=== PATIENT | male | born 1960 | race Caucasian/White ===

== ENCOUNTER 2018-10-24 14:30 | Outpatient (CLI) | payer BC, SELFPAY ==
[2018-10-24 15:28] LABS: D-Dimer 311 ng/mlFEU (<500)
== END 2018-10-24 14:50 ==
PROVIDERS: PCP Family Medicine; Visit Provider Family Medicine
DX: R07.9 Chest pain, unspecified (principal)
CPT/HCPCS: 36415; 85379

== ENCOUNTER 2018-10-25 08:13 | Outpatient (CLI) | payer BC, SELFPAY ==
--- NOTE | 2018-10-25 09:30 | DI.RAD_ITS ---
SYMPTOM/DIAGNOSIS: LEFT ANT CHEST DISCOMFORT R07.89 CHEST X-RAY: PA , LATERAL. Comparison is 04/03/09 The heart is normal in size. The lungs are clear. The mediastinal structures and pleura appear intact. CONCLUSION: Normal chest.
== END 2018-10-25 08:33 ==
PROVIDERS: PCP Family Medicine; Visit Provider Family Medicine
DX: R07.89 Other chest pain (principal)
CPT/HCPCS: 71046

== ENCOUNTER 2018-11-12 00:32 | Outpatient (CLI) | payer BC, SELFPAY ==
--- NOTE | 2018-11-12 07:06 | ETT_ITS ---
*[facility]* *[facility]* [address] [place] [address] Stress Electrocardiography Noah protocol Date of study: 11/12/2018 *PATIENT PRESENTATION* Height: 180.3cm (71in) Blood Pressure: Weight: 81.4kg (179lb) BSA: 2.03m^2 Ordering physician: Alberto Muro Impressions: Normal study after maximal exercise. Summary: 1. Stress ECG conclusions: The stress ECG is negative. Biggs treadmill score: 10. This score predicts a low risk of cardiac events. 2. Stress: The target heart rate was achieved. The heart rate response to stress is normal. There is a normal resting blood pressure with an appropriate response to stress. The patient experienced no chest pain during stress. Exercise capacity is average for age. 3. Treadmill exercise testing was performed using the Noah protocol. The patient exercised for 9 min 47 sec, to protocol stage 4, to a maximal work rate of 11.5mets. Exercise was terminated due to achievement of target heart rate. Indication: [id number], Appropriate Use Criteria: A (Appropriate). History: REASON FOR TESTING: PATIENT TESTING FOR FURTHER RISK STRATIFICATION. FOR THE PAST MONTH HE REPORTS FAIRLY CONSTANT LEFT SIDED CHEST TIGHTNESS WITH OCCASIONAL LEFT ARM NUMBNESS. PATIENT DENIES CHEST PAIN AND LEFT ARM NUMBNESS UPON ARRIVAL TO TESTING TODAY. SIGNIFICANT PAST MEDICAL HISTORY: GERD. SMOKING STATUS: NEVER. EXERCISE ROUTINE: ACTIVE WITH JOB AND HOME ACTIVITIES. Risk factors: Family history of coronary artery disease. Hypertension. Dyslipidemia. Cholesterol: 238mg/dl. HDL: 38mg/dl. LDL: 128mg/dl. Triglycerides: 220mg/dl. ALLERGIES: PENICILLIN. MEDICATIONS: ASPIRIN 81 MG DAILY, OMEGA 3 FISH OIL DAILY, ATENOLOL 25 MG DAILY, INDOMETHACIN 50 MG TID PRN, LISINOPRIL 10 MG DAILY, TADALAFIL 10 - 20 MG DAILY. Protocol: Noah protocol. Baseline ECG: SINUS RHYTHM. HR 69 BPM. Normal ECG. Stress protocol: + +---+ + !Stage !HR !BP (mmHg) ! + +---+ + !Baseline supine !69 !178/92 (121)! + +---+ + !Baseline standing !74 !156/92 (113)! + +---+ + !Stage I; 1.7mph, 10degrees; 3 min !102!164/90 (115)! + +---+ + !Stage II; 2.5mph, 12degrees; 3 min !124!168/92 (117)! + +---+ + !Stage III; 3.4mph, 14degrees; 3 min!160!188/94 (125)! + +---+ + !Peak stress !176! ! + +---+ + !Recovery; 1 min !158!196/78 (117)! + +---+ + !Recovery; 3 min !109!192/86 (121)! + +---+ + !Recovery; 6 min !99 !180/88 (119)! + +---+ + !Recovery; 9 min !102!180/94 (123)! + +---+ + !Recovery; 12 min !94 !172/94 (120)! + +---+ + * Stress results: STRESS TEST ENDED IN 9 MINUTES 47 SECONDS DUE TO HAVING MET 100% OF TARGET HEART RATE. HYPERTENSIVE AT BASELINE. NORMAL HEART RATE AND BLOOD PRESSURE RESPONSE TO EXERCISE MAX HEART RATE: 176. 108 % OF TARGET HEART RATE ACHIEVED. MET'S: 11.45. NO ECTOPY. NO ANGINA. NO SIGNIFICANT ST SEGMENT CHANGES. AVERAGE FUNCTIONAL CAPACITY. Maximal heart rate during stress was 176bpm (109% of maximal predicted heart rate). The maximal predicted heart rate was 162bpm. The target heart rate was achieved. The heart rate response to stress is normal. There is a normal resting blood pressure with an appropriate response to stress. The rate-pressure product for the peak heart rate and blood pressure was 88272jj Hg/min. The patient experienced no chest pain during stress. Exercise capacity is average for age. Stress ECG: The stress ECG is negative. Biggs treadmill score: 10. This score predicts a low risk of cardiac events. Study data: Kevin Colón MD supervised and was readily available during the procedure. This study was interpreted by [facility]. Study status: Routine. Consent: The risks, benefits, and alternatives to the procedure were explained to the patient and informed consent was obtained. Procedure: Initial setup. A baseline ECG was recorded. Surface ECG leads and manual cuff blood pressure measurements were monitored. Heart sounds: Normal. Lung sounds: Normal. Treadmill exercise testing was performed using the Noah protocol. The patient exercised for 9 min 47 sec, to protocol stage 4, to a maximal work rate of 11.5mets. Exercise was terminated due to achievement of target heart rate. Study completion: The patient tolerated the procedure well and was discharged from the lab. Discharge: The patient left the laboratory in stable condition. Birthdate: Patient birthdate: 1960. Sex: Gender: male. Study date: Study date: 11/12/2018. Study time: 00:01 AM. Signature Documentation: The Stress ECG portion of this study was interpreted by Kevin Colón MD. Electronically signed by Kevin Colón 11/12/2018 09:59
== END 2018-11-12 00:52 ==
PROVIDERS: PCP Family Medicine; Visit Provider Family Medicine
DX: R07.89 Other chest pain (principal); I10 Essential (primary) hypertension; E78.5 Hyperlipidemia, unspecified; K21.9 Gastro-esophageal reflux disease without esophagitis; Z82.49 Family history of ischemic heart disease and other diseases of the circulatory system
CPT/HCPCS: 93017

== ENCOUNTER 2019-02-13 09:35 | Outpatient (CLI) | payer BC, SELFPAY ==
[2019-02-13 13:37] LABS: CREATININE 1.14 mg/dL (0.70-1.30); Calculated LDL 169 mg/dL; Cholesterol 234 mg/dL (<200); HDL Cholesterol 37 mg/dL (40-60); Potassium 4.5 mmol/L (3.5-5.1); Triglyceride 144 mg/dL (<150)
[2019-02-13 13:47] LABS: Uric Acid 7.2 mg/dL (3.5-7.2)
[2019-02-14 13:38] LABS: PSA, Screening 0.8 ng/mL (0.0-3.5)
== END 2019-02-13 09:55 ==
PROVIDERS: PCP Family Medicine; Visit Provider Family Medicine
DX: Z00.00 Encounter for general adult medical examination without abnormal findings (principal); Z13.220 Encounter for screening for lipoid disorders; Z12.5 Encounter for screening for malignant neoplasm of prostate
CPT/HCPCS: 36415; 80061; 84153; 82565; 84132; 84550

== ENCOUNTER 2020-02-14 03:33 | Outpatient (CLI) | payer BC, SELFPAY ==
[2020-02-14 09:43] LABS: ALT 51 U/L (16-63); AST 23 U/L (15-37); Calculated LDL 82 mg/dL (<100); Cholesterol 143 mg/dL (<200); HDL Cholesterol 35 mg/dL (40-60); Potassium 4.6 mmol/L (3.5-5.1); Triglyceride 130 mg/dL (<150)
[2020-02-14 09:53] LABS: Uric Acid 6.2 mg/dL (3.5-7.2)
[2020-02-14 18:05] LABS: CREATININE 1.14 mg/dL (0.70-1.30)
[2020-02-14 22:29] LABS: PSA, Screening 0.6 ng/mL (0.0-3.5)
== END 2020-02-14 03:53 ==
PROVIDERS: PCP Family Medicine; Visit Provider Family Medicine
DX: Z00.00 Encounter for general adult medical examination without abnormal findings (principal); I10 Essential (primary) hypertension; E78.5 Hyperlipidemia, unspecified; M10.9 Gout, unspecified; Z12.5 Encounter for screening for malignant neoplasm of prostate
CPT/HCPCS: 36415; 80061; 84153; 82565; 84132; 84450; 84460; 84550

== ENCOUNTER 2021-01-13 03:19 | Outpatient (CLI) | payer BC, SELFPAY ==
[2021-01-13 09:01] LABS: CREATININE 1.1 mg/dL (0.70-1.30)
[2021-01-13 12:22] LABS: Calculated LDL 88 mg/dL (<100); Cholesterol 169 mg/dL (<200); HDL Cholesterol 34 mg/dL (40-60); Potassium 4.1 mmol/L (3.5-5.1); Triglyceride 238 mg/dL (<150)
== END 2021-01-13 03:20 | disposition home or self-care (01) ==
PROVIDERS: PCP Family Medicine; Visit Provider Family Medicine
DX: I10 Essential (primary) hypertension (principal); E78.5 Hyperlipidemia, unspecified
CPT/HCPCS: 36415; 80061; 82565; 84132

== ENCOUNTER 2022-02-25 03:14 | Outpatient (CLI) | payer BC, SELFPAY ==
[2022-02-25 10:12] LABS: Hemoglobin A1C 5.4 % (<5.7)
[2022-02-25 10:21] LABS: ALT 46 U/L (16-63); AST 41 U/L (15-37); Albumin 4.6 g/dL (3.4-5.0); Alkaline Phosphatase 68 U/L (46-116); Anion Gap 7.5 mmol/L (3-11); BUN 23 mg/dL (7-18); Bilirubin, Total 0.9 mg/dL (0.2-1.0); CO2 29.5 mmol/L (21.0-32.0); CREATININE 1.1 mg/dL (0.70-1.30); Calcium 9.5 mg/dL (8.5-10.1); Calculated LDL 66 mg/dL (<100); Chloride 101 mmol/L (98-107); Cholesterol 145 mg/dL (<200); Estimated GFR 76.37 (mL/min/1.73m2); Glucose 111 mg/dL (74-106); HDL Cholesterol 44 mg/dL (40-60); Potassium 3.7 mmol/L (3.5-5.1); Sodium 138 mmol/L (136-145); Total Protein 7.9 g/dL (6.4-8.2); Triglyceride 178 mg/dL (<150)
[2022-02-26 13:50] LABS: HIV-1/2 Ag & Ab Screen Negative (Negative)
[2022-02-28 10:56] LABS: Hepatitis C Ab w Rflx HCV PCR Negative (Negative)
== END 2022-02-25 03:15 | disposition home or self-care (01) ==
LOC: LBO 03:14
PROVIDERS: PCP Family Medicine; Visit Provider Nurse Practitioner Family
DX: I10 Essential (primary) hypertension (principal); R73.02 Impaired glucose tolerance (oral); E78.5 Hyperlipidemia, unspecified; Z11.4 Encounter for screening for human immunodeficiency virus [HIV]; Z11.59 Encounter for screening for other viral diseases
CPT/HCPCS: 36415; 80053; 80061; 86803; 87389; 83036

== ENCOUNTER 2023-01-12 05:23 | Outpatient (CLI) | payer BC, SELFPAY ==
[2023-01-12 10:30] LABS: CREATININE 1.1 mg/dL (0.70-1.30); Calculated LDL 82 mg/dL (<100); Cholesterol 135 mg/dL (<200); HDL Cholesterol 38 mg/dL (40-60); Potassium 4.3 mmol/L (3.5-5.1); Triglyceride 75 mg/dL (<150)
== END 2023-01-12 05:24 | disposition home or self-care (01) ==
PROVIDERS: PCP Family Medicine; Visit Provider Family Medicine
DX: I10 Essential (primary) hypertension (principal); E78.5 Hyperlipidemia, unspecified
CPT/HCPCS: 36415; 80061; 82565; 84132

== ENCOUNTER 2024-08-13 03:28 | Outpatient (CLI) | payer BC, SELFPAY ==
[2024-08-13 09:53] LABS: Calculated LDL 41 mg/dL (<100); Cholesterol 123 mg/dL (<200); HDL Cholesterol 40 mg/dL (>or=40); Triglyceride 211 mg/dL (<150)
[2024-08-13 18:53] LABS: PSA, Screening 0.8 ng/mL (<=4.5)
[2024-08-14 19:26] LABS: Lab Add On Test DONE
[2024-08-14 19:33] LABS: Estimated GFR 84.05 (mL/min/1.73m2); Potassium 3.9 mmol/L (3.5-5.1)
== END 2024-08-13 03:29 | disposition home or self-care (01) ==
LOC: LBO 03:28
PROVIDERS: PCP Family Medicine; Visit Provider Family Medicine
DX: Z12.5 Encounter for screening for malignant neoplasm of prostate (principal); E78.5 Hyperlipidemia, unspecified
CPT/HCPCS: 36415; 80061; 84153; 82565; 84132